=== PATIENT | female | born 1960 | race Caucasian/White ===

== ENCOUNTER 2016-12-09 11:00 | Outpatient (CLI) | payer OTHER ==
--- NOTE | 2016-12-09 14:33 | RAD ---
PA AND LATERAL VIEWS OF CHEST: Date: 12/09/16 HISTORY: Dyspnea. FINDINGS/IMPRESSION: The heart size is normal. There is an infiltrate in the left lower lobe with accompanying small effu michaela. No pneumothoraces seen. The right lung is clear. POS: [facility]
== END 2016-12-09 11:01 | disposition home or self-care (01) ==
LOC: RAD 11:00
PROVIDERS: ATTEND Internal Medicine Pulmonary Disease
DX: R06.00 Dyspnea, unspecified (principal); J90 Pleural effusion, not elsewhere classified
CPT/HCPCS: 71020

== ENCOUNTER 2016-12-15 12:19 | Outpatient (CLI) | payer OTHER ==
--- NOTE | 2016-12-15 14:44 | RAD ---
CHEST PA AND LATERAL: Date: 12/15/16 HISTORY: 56-year-old female with dyspnea. COMPARISON: 12/09/16. FINDINGS: Overall stable moderate size left pleural effusion and small right pleural effusion with some linear parenchymal changes in the infrahilar regions bilaterally. No new process. IMPRESSION: Stable bilateral pleural opacities, greater on the left side, and minimal stable appearing linear pa renchymal changes in the infrahilar regions bilaterally. No definitive new process. POS: [facility]
== END 2016-12-15 12:20 | disposition home or self-care (01) ==
LOC: RAD 12:19
PROVIDERS: ATTEND Internal Medicine Pulmonary Disease
DX: R06.00 Dyspnea, unspecified (principal); R91.8 Other nonspecific abnormal finding of lung field
CPT/HCPCS: 71020

== ENCOUNTER 2016-12-16 10:31 | Outpatient (CLI) | payer OTHER ==
--- NOTE | 2016-12-16 13:58 | CT ---
NONCONTRAST ENHANCED CT CHEST: Date: 12/16/16 HISTORY: Pleural effusion recovering from pneumonia. FINDINGS: Noncontrast enhanced CT images of chest obtained. Loculated left-sided pleural effusion noted. There is extensive consolidation seen in much of the left lower lobe with air bronchograms. Some areas of patchy density also seen in the left central upper lobe. No evidence of mediastinal, axillary, or h ilar lymphadenopathy seen. The right lung is well aerated. IMPRESSION: Areas of consolidation in much of the left lower lobe with possible associated loculated left-sided pleural effusion. POS: [facility]
== END 2016-12-16 10:32 | disposition home or self-care (01) ==
LOC: CT 10:31
PROVIDERS: ATTEND Internal Medicine Pulmonary Disease
DX: J90 Pleural effusion, not elsewhere classified (principal); J98.11 Atelectasis; J18.9 Pneumonia, unspecified organism
CPT/HCPCS: 71250

== ENCOUNTER 2017-01-02 13:59 | Outpatient (CLI) | payer OTHER ==
--- NOTE | 2017-01-02 17:02 | RAD ---
TWO VIEW CHEST: Comparison: 12-15-16 Indication: Dyspnea. FINDINGS: There is a patchy left perihilar multifocal opacification. Mild left basilar opacity, pleural based, is present. Right lung is clear. Cardiac silhouette is normal in size. IMPRESSION: 1. Patchy focal left perihilar opacity, as residual from prior exam. This may relate to a component of residual pneumonia or edema. 2. Improved pleural based density in inferior left hemithorax. Mild residua does remain. Consider fo llow up to complete resolution. POS: [facility]
== END 2017-01-02 14:00 | disposition home or self-care (01) ==
LOC: RAD 13:59
PROVIDERS: ATTEND Internal Medicine Pulmonary Disease
DX: R06.00 Dyspnea, unspecified (principal); R91.8 Other nonspecific abnormal finding of lung field
CPT/HCPCS: 71020

== ENCOUNTER 2017-02-03 14:16 | Outpatient (CLI) | payer OTHER ==
--- NOTE | 2017-02-03 15:53 | RAD ---
2 VIEW CHEST: Date: 02/03/17 HISTORY: Dyspnea. COMPARISON: 01/02/17. FINDINGS: The hazy infiltrate in the left perihilar and left mid and lower lung noted on the prior study has im proved. No significant infiltrate seen on today's study. There is stranding in the right upper lobe o n the frontal view, which was present previously and appears chronic. Heart size is within normal ran ge. IMPRESSION: Improvement in left lung infiltrate when compared to the prior exam. POS: [facility]
== END 2017-02-03 14:17 | disposition home or self-care (01) ==
LOC: RAD 14:16
PROVIDERS: ATTEND Internal Medicine Pulmonary Disease
DX: R06.00 Dyspnea, unspecified (principal); R91.8 Other nonspecific abnormal finding of lung field
CPT/HCPCS: 71020

== ENCOUNTER 2023-01-09 11:48 | Outpatient (CLI) | payer BC, OTHER | END 2023-01-09 11:49 | disposition home or self-care (01) | LOC: RAD 11:48 | PROVIDERS: ATTEND Internal Medicine | DX: R06.00 Dyspnea, unspecified (principal); J98.4 Other disorders of lung; J90 Pleural effusion, not elsewhere classified | CPT/HCPCS: 71046 ==

== ENCOUNTER 2024-03-05 08:50 | Day surgery (SDC) | payer BC, MEDICARE ==
[2024-03-04 15:36] VITALS: BMI 30.9
[~2024-03-05 08:50] MED LIST: EPINEPHrine 0.3 MG in Ophthalmic Irrigation Solution 500 ML IRR SCH
[2024-03-05] MEDS ORDERED: PHENYLephrine 2.5% Ophth Soln 15 ml Bottle ONE (09:10)
[2024-03-05] MEDS ORDERED: Cyclopentolate 1% Opth Drop 2 ML BOT ONE (09:11)
[2024-03-05] MEDS ORDERED: fentaNYL 50 mcg/mL 1 mL Vial ONE (10:07)
[2024-03-05] MEDS ORDERED: Indocyanine Green 25 MG/10 ML VIAL ONE (10:35)
[2024-03-05] MEDS ORDERED: CEFAZOLIN 1 GM VIAL ONE (10:35)
[2024-03-05] MEDS ORDERED: PROPOFOL 200 MG/20 ML VIAL ONE (10:35)
[2024-03-05] MEDS ORDERED: Maxitrol 0.1% Opth Oint 3.5 GM TUBE ONE (10:35)
[2024-03-05] MEDS ORDERED: Bupivacaine 0.75% 10 ML VIAL ONE (10:35)
[2024-03-05] MEDS ORDERED: Triamcinolone 40 MG/ML VIAL ONE (10:35)
[2024-03-05] MEDS ORDERED: Lidocaine 4% PF 5 ML AMP ONE (10:35)
[2024-03-05] MEDS ORDERED: Lidocaine 1% PF 5 ML VIAL ONE (10:35)
== END 2024-03-05 11:48 | disposition home or self-care (01) ==
LOC: SDC 08:50
PROVIDERS: ATTEND Ophthalmology Retina Specialist
PROC: 08T53ZZ Resection of Left Vitreous, Percutaneous Approach (ICD-10-PCS; principal; 2024-03-05)
DX: H35.342 Macular cyst, hole, or pseudohole, left eye (principal); Z88.5 Allergy status to narcotic agent
CPT/HCPCS: 67025; 67042; J0171; J0690; J2704; J3010; J3301; J3490